=== PATIENT | female | born 1990 ===

== ENCOUNTER 2018-01-17 02:26 | Emergency (ER) | payer OTHER, SELFPAY ==
[2018-01-17 02:26] VITALS: BMI 42.9
[2018-01-17 02:47] VITALS: RESP 20; O2SAT 100
--- NOTE | 2018-01-17 02:59 | C.PDOC ---
Time Seen by Provider: 01/17/18 02:59 Chief Complaint (Nursing): Back Pain Past Medical History Vital Signs: Last Vital Signs Temp 98.4 F 01/17/18 02:40 Pulse 100 H 01/17/18 02:40 Resp 20 01/17/18 02:40 BP 124/80 01/17/18 02:40 Pulse Ox 100 01/17/18 02:40 - Medical History PMH: Diabetes (type 2), HTN, Hypercholesterolemia, Hypothyroidism Surgical History: Family History: States: Unknown Family Hx - Social History Hx Tobacco Use: No Hx Alcohol Use: No Hx Substance Use: No - Immunization History Hx Tetanus Toxoid Vaccination: No Hx Influenza Vaccination: No Hx Pneumococcal Vaccination: No ED Course And Treatment O2 Sat by Pulse Oximetry: 100 Disposition Counseled Patient/Family Regarding: Studies Performed, Diagnosis - Disposition Disposition Time: 02:59
--- NOTE | 2018-01-17 03:05 | C.PDOC ---
History Of Present Illness patient presents with dysuria, increased frequency and back pain, worsening over the last 3-5 days. No f/c/n/v. tolerating po. Time Seen by Provider: 01/17/18 02:59 Chief Complaint (Nursing): Back Pain History Per: Patient History/Exam Limitations: no limitations Onset/Duration Of Symptoms: Days (5) Current Symptoms Are (Timing): Still Present Severity: Moderate Pain Scale Rating Of: 4 Quality: burning Past Medical History Reviewed: Historical Data, Nursing Documentation, Vital Signs Vital Signs: Last Vital Signs Temp 98.4 F 01/17/18 02:40 Pulse 100 H 01/17/18 02:40 Resp 20 01/17/18 02:40 BP 124/80 01/17/18 02:40 Pulse Ox 100 01/17/18 03:05 - Medical History PMH: Diabetes (type 2), HTN, Hypercholesterolemia, Hypothyroidism Surgical History: Family History: States: No Known Family Hx - Social History Hx Tobacco Use: No Hx Alcohol Use: No Hx Substance Use: No - Immunization History Hx Tetanus Toxoid Vaccination: No Hx Influenza Vaccination: No Hx Pneumococcal Vaccination: No Review Of Systems Constitutional: Negative for: Fever, Chills Gastrointestinal: Negative for: Nausea, Vomiting, Abdominal Pain Genitourinary: Positive for: Dysuria, Frequency Musculoskeletal: Positive for: Back Pain Skin: Negative for: Rash Neurological: Negative for: Weakness Psych: Negative for: Anxiety Physical Exam - Physical Exam Appears: Non-toxic, No Acute Distress Skin: Warm, Dry Oral Mucosa: Moist Neck: Supple Chest: Symmetrical Cardiovascular: Rhythm Regular Respiratory: No Rales, No Rhonchi, No Wheezing Gastrointestinal/Abdominal: Soft, Tenderness (suprapubic), No Distention, No Guarding Back: CVA Tenderness (right) Extremity: Normal ROM Extremity: Bilateral: Atraumatic Neurological/Psych: Oriented x3 Gait: Steady ED Course And Treatment O2 Sat by Pulse Oximetry: 100 Pulse Ox Interpretation: Normal Disposition Counseled Patient/Family Regarding: Studies Performed, Diagnosis, Need For Followup, Rx Given - Disposition Referrals: [facility] [Outside] [facility] [Outside] Disposition: HOME/ ROUTINE Disposition Time: 03:02 Condition: FAIR Prescriptions: Nitrofurantoin Macrocrystals [Macrobid] 1 cap PO BID #14 cap Phenazopyridine [Pyridium] 200 mg PO TID #6 tab Instructions: Urinary Tract Infection, Adult (DC) Forms: [employer] (Welsh) Print Language: GU[place]AL[place] - Clinical Impression Clinical Impression: UTI (urinary tract infection)
[2018-01-17 03:20] LABS: SQUAMOUS EPITHIAL 2 /hpf (0-5); URINE BACTERIA RARE (<OCC); URINE BILIRUBIN NEGATIVE (NEGATIVE); URINE CALCIUM OXALATE CRYSTALS RARE /hpf (<OCC); URINE CLARITY Hazy (Clear); URINE COLOR Yellow (YELLOW); URINE GLUCOSE (UA) NORMAL (Normal); URINE LEUKOCYTE ESTERASE 3+ Leu/uL (Negative); URINE NITRATE NEGATIVE (NEGATIVE); URINE PROTEIN 1+ mg/dL (NEGATIVE); URINE UROBILINOGEN NORMAL mg/dL (0.2-1.0)
[2018-01-17 03:28] LABS: HCG,QUALITATIVE URINE NEGATIVE (NEGATIVE)
[2018-01-17 03:29] LABS: URINE BLOOD 1+ (NEGATIVE)
[2018-01-17 03:56] VITALS: BP 144/83; PULSE 77; TEMP 98.8
== END 2018-01-17 03:56 | disposition home or self-care (01) ==
LOC: C.ER 02:26
DX: N39.0 Urinary tract infection, site not specified (principal); E11.9 Type 2 diabetes mellitus without complications; I10 Essential (primary) hypertension; E78.00 Pure hypercholesterolemia, unspecified; E03.9 Hypothyroidism, unspecified

== ENCOUNTER 2018-12-12 18:27 | Emergency (ER) | payer OTHER ==
[2018-12-12 18:27] VITALS: BMI 42.9
[2018-12-12 19:44] LABS: BASO % 0.6 % (0.0-2.0); EOS # 0.1 K/uL (0.0-0.7); EOS % 1.7 % (0.0-4.0); HEMOGLOBIN 13.5 g/dL (11.0-16.0); LYMPH # 1.5 K/uL (1.0-4.3); LYMPH % 22.6 % (20.0-40.0); MEAN CELL VOLUME 84.3 fL (81.0-99.0); MEAN CORPUSCULAR HEMOGLOBIN 28.3 pg (27.0-31.0); MEAN CORPUSCULAR HGB CONC 33.5 g/dL (33.0-37.0); MEAN PLATELET VOLUME 9.9 fL (7.2-11.7); MONO # 0.5 K/uL (0.0-0.8); MONO % 6.9 % (0.0-10.0); NEUT # 4.6 K/uL (1.8-7.0); NEUT % 68.2 % (50.0-75.0); RBC 4.77 Mil/uL (3.80-5.20); RED CELL DISTRIBUTION WIDTH 13.5 % (11.5-14.5); WHITE BLOOD COUNT 6.7 K/uL (4.8-10.8)
[2018-12-12 19:52] LABS: PARTIAL THROMBOPLASTIN TIME 38 SECONDS (21-34); PROTHROMBIN TIME 10.8 SECONDS (9.7-12.2)
[2018-12-12 19:56] LABS: ALB/GLOB RATIO 1.3 (1.0-2.1); ALBUMIN 4.4 g/dL (3.5-5.0); ALT/SGPT 93 U/L (9-52); AST/SGOT 89 U/L (14-36); BLOOD UREA NITROGEN 7 mg/dL (7-17); CALCIUM 9.4 mg/dl (8.6-10.4); GFR NON-AFRICAN AMERICAN > 60
--- NOTE | 2018-12-12 20:16 | C.PDOC ---
History Of Present Illness Patient presents to the ER with a complaint of nausea, vomiting, and abdominal pain after eating a sandwich which she ordered from outside yesterday. Patient describes the pain as a burning sensation that goes into her chest and radiates to her back and is associated with 4-5 episodes of diarrhea. She is currently speaking in complete sentences. Denies fever or chills. Time Seen by Provider: 12/12/18 19:59 Chief Complaint (Nursing): Chest Pain History Per: Patient History/Exam Limitations: no limitations Onset/Duration Of Symptoms: Days (Yesterday) Current Symptoms Are (Timing): Still Present Context: Food Severity: Moderate Pain Scale Rating Of: 4 Quality: Burning Associated Symptoms: Nausea, Other (Vomiting, Diarrhea) Modifying Factors: None Exacerbating Factors: None Alleviating Factors: None Recent travel outside of the [place]: No Past Medical History Reviewed: Historical Data, Nursing Documentation, Vital Signs Vital Signs: Last Vital Signs Temp 98.4 F 12/12/18 18:37 Pulse 117 H 12/12/18 18:37 Resp 20 12/12/18 18:37 BP 127/84 12/12/18 18:37 Pulse Ox 117 H 12/12/18 18:37 - Medical History PMH: Diabetes (type 2), HTN, Hypercholesterolemia, Hypothyroidism Surgical History: Family History: States: No Known Family Hx - Social History Hx Tobacco Use: No Hx Alcohol Use: No Hx Substance Use: No - Immunization History Hx Tetanus Toxoid Vaccination: No Hx Influenza Vaccination: No Hx Pneumococcal Vaccination: No Review Of Systems Constitutional: Negative for: Fever, Chills Cardiovascular: Negative for: Palpitations Respiratory: Negative for: Cough, Shortness of Breath Gastrointestinal: Positive for: Nausea, Vomiting, Abdominal Pain, Diarrhea Neurological: Negative for: Weakness, Numbness Physical Exam - Physical Exam Appears: Non-toxic Skin: Warm, Dry Head: Normacephalic Eye(s): bilateral: Normal Inspection Oral Mucosa: Moist Neck: Trachea Midline, Supple Chest: Symmetrical, No Tenderness Cardiovascular: Rhythm Regular Respiratory: No Rales, No Rhonchi, No Wheezing Gastrointestinal/Abdominal: Soft, Tenderness (Mildly diffuse), No Guarding, No Rebound Back: No CVA Tenderness Neurological/Psych: Oriented x3 ED Course And Treatment - Laboratory Results Result Diagrams: 12/12/18 19:40 12/12/18 19:40 Lab Results: PT 10.8 SECONDS (9.7-12.2) 12/12/18 19:40 INR 1.0 12/12/18 19:40 APTT 38 SECONDS (21-34) H 12/12/18 19:40 Total Bilirubin 0.6 mg/dL (0.2-1.3) 12/12/18 19:40 AST 89 U/L (14-36) H 12/12/18 19:40 ALT 93 U/L (9-52) H D 12/12/18 19:40 Alkaline Phosphatase 85 U/L (38-126) 12/12/18 19:40 Total Protein 7.8 g/dL (6.3-8.3) 12/12/18 19:40 Albumin 4.4 g/dL (3.5-5.0) 12/12/18 19:40 Globulin 3.4 gm/dL (2.2-3.9) 12/12/18 19:40 Albumin/Globulin Ratio 1.3 (1.0-2.1) 12/12/18 19:40 ECG: Interpreted By Me, Viewed By Me ECG Rhythm: Sinus Rhythm (101), Nonspecific Changes O2 Sat by Pulse Oximetry: 99 (Room air) Pulse Ox Interpretation: Normal - Radiology CXR: Interpreted by Me, Viewed By Me Progress Note: EKG, blood work, and urinalysis ordered. Aspirin and IV fluids administered. Reevaluation Time: 23:21 Reassessment Condition: Improved Disposition Counseled Patient/Family Regarding: Studies Performed, Diagnosis, Need For Followup, Rx Given - Disposition Referrals: [facility] [Outside] Disposition: HOME/ ROUTINE Disposition Time: 20:16 Condition: FAIR Additional Instructions: Please return if symptoms recur Prescriptions: Dicyclomine [Dicyclomine HCl] 10 mg PO QID #20 cap Pantoprazole Sodium [Protonix] 40 mg PO DAILY #15 ect Instructions: Acid Reflux (Gastroesophageal Reflux Disease) in Adults, Acute Abdomen (Belly Pain), Adult (DC) Forms: [facility] (Romanian) Print Language: [place] - Clinical Impression Clinical Impression: Abdominal pain, Enteritis, GERD (gastroesophageal reflux disease) - Scribe Statement The provider has reviewed the documentation as recorded by the Scribdestiny Reyes All medical record entries made by the Scribe were at my direction and personally dictated by me. I have reviewed the chart and agree that the record accurately reflects my personal performance of the history, physical exam, medical decision making, and the department course for this patient. I have also personally directed, reviewed, and agree with the discharge instructions and disposition.
[2018-12-12 20:19] VITALS: O2SAT 99
[2018-12-12 20:21] LABS: D DIMER < 200 ng/mlDDU (0-243)
[2018-12-12] MEDS ORDERED: Aspirin 325 mg EC Tablets PO ONE (20:34)
[2018-12-12] MEDS ORDERED: Sodium Chloride 0.9% 1,000 ML ONE (20:34)
[2018-12-12] MEDS: Sodium Chloride 0.9% 1,000 ML IV ONE (20:34)
[2018-12-12] MEDS: Aspirin 325 mg EC Tablets PO STA (20:34)
[2018-12-12 20:53] LABS: HCG,QUALITATIVE URINE NEGATIVE (NEGATIVE)
[2018-12-12 20:56] LABS: LIPASE 33 U/L (23-300)
[2018-12-12 20:57] LABS: SQUAMOUS EPITHIAL 2 /hpf (0-5); URINE BACTERIA MOD (<OCC); URINE BILIRUBIN NEGATIVE (NEGATIVE); URINE BLOOD NEGATIVE (NEGATIVE); URINE CLARITY Clear (Clear); URINE COLOR Straw (YELLOW); URINE GLUCOSE (UA) NORMAL (Normal); URINE LEUKOCYTE ESTERASE TRACE Leu/uL (Negative); URINE PROTEIN NEGATIVE (NEGATIVE); URINE UROBILINOGEN NORMAL mg/dL (0.2-1.0)
[2018-12-12] MEDS ORDERED: Iohexol 300 100 ML IJ ONE (22:15)
[2018-12-12 23:51] VITALS: BP 114/77; PULSE 92; RESP 18; TEMP 98.3
--- NOTE | 2018-12-13 09:12 | RAD ---
Date of service: 12/12/2018 HISTORY: Chest pain COMPARISON: Comparison chest dated 10/18/2016 TECHNIQUE: Chest PA and lateral FINDINGS: LUNGS: No active pulmonary disease. PLEURA: No significant pleural effusion identified. No pneumothorax apparent. CARDIOVASCULAR: No aortic atherosclerotic calcification present. Normal cardiac size. No pulmonary vascular congestion. OSSEOUS STRUCTURES: No significant abnormalities. VISUALIZED UPPER ABDOMEN: Normal. OTHER FINDINGS: None. IMPRESSION: No active disease.
--- NOTE | 2018-12-13 10:38 | CT ---
Date of service: 12/12/2018 PROCEDURE: CT Abdomen and Pelvis with contrast HISTORY: mid epigastric pain COMPARISON: CT abdomen and pelvis with IV contrast performed 12/30/14 TECHNIQUE: Contrast dose: 100 mL Omnipaque 300 IV Radiation dose: Total exam DLP = 1196.19 mGy-cm. This CT exam was performed using one or more of the following dose reduction techniques: Automated exposure control, adjustment of the mA and/or kV according to patient size, and/or use of iterative reconstruction technique. FINDINGS: LOWER THORAX: No visible consolidation, pleural effusion, or pneumothorax. LIVER: Hypoattenuation of the liver compatible with hepatic steatosis. GALLBLADDER AND BILE DUCTS: Unremarkable. PANCREAS: Unremarkable. SPLEEN: Unremarkable. ADRENALS: Unremarkable. KIDNEYS AND URETERS: The kidneys enhance symmetrically. No hydronephrosis or obstructing calculus identified. VASCULATURE: No aortic aneurysm. No atherosclerotic calcification or mural plaque present. BOWEL: Stomach is nondistended. Lack of oral contrast limits evaluation for bowel pathology. Bowel loops appear within normal limits of caliber without evidence of obstruction. Mildly thick-walled small bowel loops. APPENDIX: The appendix appears within normal limits of caliber. No secondary signs of acute appendicitis. PERITONEUM: No significant free fluid. No definite free air. LYMPH NODES: No bulky adenopathy identified. BLADDER: Unremarkable. REPRODUCTIVE: Uterus is present. BONES: No acute osseous abnormality is detected. OTHER FINDINGS: None. IMPRESSION: Mildly thick-walled small bowel loops; correlate clinically for possibility of enteritis. Hypoattenuation of the liver compatible with hepatic steatosis. Preliminary impression was provided by [facility]
--- NOTE | 2018-12-14 18:51 | CARD ---
APPROVED REPORT Date of service: 12/12/2018 EKG Measurement Heart [id number] <Conclusion> Sinus tachycardia Otherwise normal ECG
== END 2018-12-12 23:51 | disposition home or self-care (01) ==
LOC: C.ER 18:27
DX: K21.9 Gastro-esophageal reflux disease without esophagitis (principal); K52.9 Noninfective gastroenteritis and colitis, unspecified; R10.9 Unspecified abdominal pain; E03.9 Hypothyroidism, unspecified; E11.9 Type 2 diabetes mellitus without complications; E78.00 Pure hypercholesterolemia, unspecified; I10 Essential (primary) hypertension
CPT/HCPCS: 36415; 71046; 74177; 80053; 81001; 83690; 84484; 84703; 85025; 85378; 85610; 85730; 93005; 96361; 96374; 96375; 99284; C9113; J1885; J7030; Q9967

== ENCOUNTER 2018-12-23 11:28 | Outpatient (CLI) | payer OTHER | END 2018-12-23 11:29 | disposition home or self-care (01) | LOC: C.LAB 11:28 | DX: E03.9 Hypothyroidism, unspecified (principal); E11.65 Type 2 diabetes mellitus with hyperglycemia ==

== ENCOUNTER 2019-03-28 08:51 | Outpatient (CLI) | payer OTHER | END 2019-03-28 08:52 | disposition home or self-care (01) | LOC: C.LAB 08:51 | DX: E78.2 Mixed hyperlipidemia (principal) ==